=== PATIENT | male | born 1990 | race American Indian/Alaskan Native ===

== ENCOUNTER 2016-09-21 21:32 | Emergency (ER) | payer OTHER ==
[~2016-09-21] VITALS: Ht 175.3 cm; Wt 90.9 kg
[~2016-09-21 21:32] MED LIST: ATIVAN 0.50.5 MG/TAB PO; CYMBALTA 60MG60 MG PO; DESYREL 50MG50 MG PO; DOXYCYCLINE 10100 MG PO; DUO-KAPS1 CAP PO; FELDENE10 MG PO; FLEXERIL 1010 MG/TAB PO; LEXAPRO 10MG10 MG PO; MOTRIN 600600 MG/TAB PO; NEURONTIN100 MG/CAP PO; NORCO 325 MG-101 TAB PO; NORCO 325 MG-51 TAB PO; NORCO 325 MG-7.1 TAB PO; ULTRAM 50MG TAB50 MG PO; VITAMIN D1000 IU PO; XANAX .25M0.25 MG/TA PO; ZOFRAN 4MG T4 MG/TAB PO; ZOLOFT 50MG50 MG PO
[2016-09-21 21:36] VITALS: BP 142/88; TEMP 98.5
[2016-09-21] MEDS ORDERED: NAPROXEN 3375 MG/TAB PO (22:47)
[2016-09-21] MEDS ORDERED: XANAX .25M0.25 MG/TA PO (22:47)
[2016-09-21 23:02] VITALS: PULSE 67
== END 2016-09-21 23:04 | disposition home or self-care (01) ==
LOC: COL.ER 21:32
DX: F41.9 Anxiety disorder, unspecified (principal)
CPT/HCPCS: J1885

== ENCOUNTER 2017-02-06 13:29 | Emergency (ER) | payer OTHER ==
[~2017-02-06] VITALS: Ht 175.3 cm; Wt 95.5 kg
[2017-02-06 13:29] VITALS: TEMP 98.2
[~2017-02-06 13:29] MED LIST changes: +NAPROXEN 3375 MG/TAB PO
[2017-02-06 14:09] LABS: CALCIUM 9.7 mg/dL (8.4-10.2); CREATININE, serum 0.72 mg/dL (0.66-1.25); POTASSIUM 4.2 mmol/L (3.4-5.0)
[2017-02-06 14:21] LABS: HEMOGLOBIN 16.6 g/dl (13.5-18.0); MEAN CELL VOLUME 90 fl (80.0-100.0); MEAN CORPUSCULAR HEMOGLOBIN 31 pg (27.0-31.0); MEAN CORPUSCULAR HGB CONC 34 g/dl (33.0-37.0); MEAN PLATELET VOLUME 9.1 fl (7.4-10.4); PLATELET COUNT 249 K/mm3 (130-400); RED BLOOD COUNT 5.44 M/mm3 (4.20-5.60); REDCELL DISTRIBUTION WIDTH-CV 12.7 % (11.5-14.5); WHITE BLOOD COUNT 13.9 K/mm3 (4.8-10.8)
[2017-02-06 14:27] LABS: ADD PATHOLOGY DIFF REVIEW NO
[2017-02-06 15:23] VITALS: BP 128/70; PULSE 83
[2017-02-06 16:36] LABS: BAND 8 % (0-10); NEUTROPHILS 88 % (42.0-75.2); PLATELET ESTIMATE NORMAL (NORMAL); TOTAL CELLS COUNTED 100
== END 2017-02-06 15:24 | disposition home or self-care (01) ==
LOC: COL.ER 13:29
PROVIDERS: Physician Assistant
DX: R11.10 Vomiting, unspecified (principal); R19.7 Diarrhea, unspecified; G43.909 Migraine, unspecified, not intractable, without status migrainosus
CPT/HCPCS: J2550; J7030

== ENCOUNTER 2017-05-19 02:37 | Emergency (ER) | payer OTHER ==
[~2017-05-19] VITALS: Ht 175.3 cm; Wt 90.9 kg
[2017-05-19 02:41] VITALS: BP 131/76; PULSE 70; TEMP 97.8
[2017-05-19] MEDS ORDERED: MOBIC15 MG PO (02:44)
[2017-05-19] MEDS ORDERED: SILENOR3 MG PO (02:45)
[2017-05-19 03:16] LABS: BASO % 0.2 % (0.0-2.0); EOS # 0.2 (0.0-0.7); EOS % 2.5 % (0-4.0); GRAN # 3.5 (1.4-6.5); GRAN % 59.5 % (42.2-75.2); HEMATOCRIT 42.1 % (42.0-52.0); HEMOGLOBIN 14.7 g/dl (13.5-18.0); LYMPH # 1.8 (1.2-3.4); LYMPH % 29.5 % (20.0-51.0); MEAN CELL VOLUME 88 fl (80.0-100.0); MEAN CORPUSCULAR HEMOGLOBIN 31 pg (27.0-31.0); MEAN CORPUSCULAR HGB CONC 35 g/dl (33.0-37.0); MEAN PLATELET VOLUME 8.9 fl (7.4-10.4); MONO # 0.5 (0.1-0.6); MONO % 8.1 % (1.7-9.3); PLATELET COUNT 244 K/mm3 (130-400); RED BLOOD COUNT 4.79 M/mm3 (4.20-5.60); WHITE BLOOD COUNT 5.9 K/mm3 (4.8-10.8)
[2017-05-19 03:29] LABS: ADJUSTED CALCIUM 8.7 mg/dL (8.4-10.2); ALBUMIN 4.9 gm/dL (3.5-5.0); BILIRUBIN,TOTAL 0.7 mg/dL (0.0-1.0); C-REACTIVE PROTEIN 2.3 mg/dL (0.0-0.9); CALCIUM 9.4 mg/dL (8.4-10.2); CREATININE, serum 0.66 mg/dL (0.66-1.25)
[2017-05-19 03:44] LABS: COLLECTION METHOD CLEAN CATCH
[2017-05-19 03:51] LABS: MUCOUS Present /lpf; PH 5 (5-8); SQUAMOUS EPITHELIAL 0-2 /hpf; URINE APPEARANCE Clear; URINE BACTERIA None Seen /hpf; URINE BILIRUBIN Negative (NEGATIVE); URINE BLOOD Negative (NEGATIVE); URINE COLOR Yellow; URINE GLUCOSE Negative (NEGATIVE); URINE KETONE Negative (NEGATIVE); URINE LEUKOCYTE ESTERASE Negative (NEGATIVE); URINE PROTEIN(semi-quant) Negative (NEGATIVE); URINE RBC 0-2 /hpf; URINE WBC 0-2 /hpf
[2017-05-19] MEDS ORDERED: DOXYCYCLINE 10100 MG PO (05:34)
== END 2017-05-19 06:03 | disposition home or self-care (01) ==
LOC: COL.ER 02:37
PROVIDERS: Emergency Medicine
DX: N50.812 Left testicular pain (principal); G89.29 Other chronic pain; M54.9 Dorsalgia, unspecified
CPT/HCPCS: J1170; J1885; J2405; J7030

== ENCOUNTER → 2017-06-27 | Outpatient (CLI) | payer OTHER ==
[~2017-06-27] MED LIST changes: +MOBIC15 MG PO; +SILENOR3 MG PO
== END ==
LOC: MHCPAIN 07:53
DX: G89.29 Other chronic pain (principal); M47.817 Spondylosis without myelopathy or radiculopathy, lumbosacral region; M53.3 Sacrococcygeal disorders, not elsewhere classified; M96.1 Postlaminectomy syndrome, not elsewhere classified
CPT/HCPCS: G0463

== ENCOUNTER 2017-07-12 04:35 | Emergency (ER) | payer OTHER ==
[~2017-07-12] VITALS: Ht 175.3 cm; Wt 93.2 kg
[2017-07-12 04:37] VITALS: TEMP 97.7
[2017-07-12] MEDS ORDERED: ASPIRIN E.C. 8181 MG PO (04:44)
[2017-07-12] MEDS ORDERED: FLEXERIL 1010 MG/TAB PO (05:53)
[2017-07-12 06:30] VITALS: BP 123/78; PULSE 63
[2017-07-13] MEDS ORDERED: MOBIC15 MG PO (17:29)
[2017-07-13] MEDS ORDERED: FLEXERIL 1010 MG/TAB PO (18:01)
== END 2017-07-12 06:30 | disposition home or self-care (01) ==
LOC: COL.ER 04:35
DX: G89.29 Other chronic pain (principal); M54.5 Low back pain; F43.10 Post-traumatic stress disorder, unspecified; Z98.890 Other specified postprocedural states; Z79.82 Long term (current) use of aspirin; X50.0XXA Overexertion from strenuous movement or load, initial encounter
CPT/HCPCS: J1885; J2060

== ENCOUNTER 2017-07-13 15:46 | Emergency (ER) | payer OTHER ==
[~2017-07-13] VITALS: Ht 175.3 cm; Wt 90.9 kg
[~2017-07-13 15:46] MED LIST changes: +ASPIRIN E.C. 8181 MG PO
[2017-07-13 15:51] VITALS: BP 142/77; TEMP 99.3
[2017-07-13] MEDS ORDERED: MOBIC15 MG PO (17:29)
[2017-07-13] MEDS ORDERED: FLEXERIL 1010 MG/TAB PO (18:01)
[2017-07-13 18:08] VITALS: PULSE 68
== END 2017-07-13 18:08 | disposition home or self-care (01) ==
LOC: COL.ER 15:46
DX: M51.37 Other intervertebral disc degeneration, lumbosacral region (principal); Z98.890 Other specified postprocedural states; Z79.82 Long term (current) use of aspirin; X50.0XXA Overexertion from strenuous movement or load, initial encounter
CPT/HCPCS: J1885; J2060

== ENCOUNTER → 2017-07-28 | Outpatient (CLI) | payer OTHER | LOC: MHCPAIN 10:33 | DX: M47.27 Other spondylosis with radiculopathy, lumbosacral region (principal); M51.26 Other intervertebral disc displacement, lumbar region; M96.1 Postlaminectomy syndrome, not elsewhere classified | CPT/HCPCS: J1100; Q9967 ==

== ENCOUNTER 2017-07-29 02:09 | Emergency (ER) | payer OTHER ==
[~2017-07-29] VITALS: Ht 175.3 cm; Wt 90.9 kg
[2017-07-29 02:19] VITALS: BP 137/75; PULSE 86; TEMP 97.3
== END 2017-07-29 03:01 | disposition home or self-care (01) ==
LOC: COL.ER 02:09
DX: R51 Headache (principal)

== ENCOUNTER → 2017-08-09 | Outpatient (CLI) | payer OTHER | LOC: MHCPAIN 11:10 | DX: G89.29 Other chronic pain (principal); M47.817 Spondylosis without myelopathy or radiculopathy, lumbosacral region; M54.16 Radiculopathy, lumbar region; M53.3 Sacrococcygeal disorders, not elsewhere classified; M96.1 Postlaminectomy syndrome, not elsewhere classified | CPT/HCPCS: G0463 ==

== ENCOUNTER → 2017-09-01 | Outpatient (CLI) | payer OTHER | LOC: MHCPAIN 11:47 | DX: M47.27 Other spondylosis with radiculopathy, lumbosacral region (principal); M51.06 Intervertebral disc disorders with myelopathy, lumbar region; M96.1 Postlaminectomy syndrome, not elsewhere classified | CPT/HCPCS: J1040; J1100; Q9967 ==

== ENCOUNTER → 2017-10-03 | Outpatient (CLI) | payer OTHER | LOC: MHCPAIN 14:12 | DX: G89.29 Other chronic pain (principal); M47.817 Spondylosis without myelopathy or radiculopathy, lumbosacral region; M54.16 Radiculopathy, lumbar region; M53.3 Sacrococcygeal disorders, not elsewhere classified; M96.1 Postlaminectomy syndrome, not elsewhere classified | CPT/HCPCS: G0463 ==

== ENCOUNTER → 2017-11-02 | Outpatient (CLI) | payer OTHER | LOC: MHCPAIN 08:44 | DX: G89.29 Other chronic pain (principal); M47.817 Spondylosis without myelopathy or radiculopathy, lumbosacral region; M54.16 Radiculopathy, lumbar region; M53.3 Sacrococcygeal disorders, not elsewhere classified; M96.1 Postlaminectomy syndrome, not elsewhere classified | CPT/HCPCS: G0463 ==

== ENCOUNTER 2018-01-03 21:30 | Emergency (ER) | payer OTHER ==
[~2018-01-03] VITALS: Ht 175.3 cm; Wt 90.9 kg
[2018-01-03 21:33] VITALS: BP 139/84; TEMP 98
[2018-01-03 22:56] VITALS: PULSE 67
== END 2018-01-03 22:56 | disposition home or self-care (01) ==
LOC: COL.ER 21:30
DX: F41.9 Anxiety disorder, unspecified (principal); F43.10 Post-traumatic stress disorder, unspecified; G43.909 Migraine, unspecified, not intractable, without status migrainosus; Z98.890 Other specified postprocedural states; Z79.82 Long term (current) use of aspirin

== ENCOUNTER 2018-02-15 10:35 | Emergency (ER) | payer OTHER ==
[~2018-02-15] VITALS: Ht 175.3 cm; Wt 90.9 kg
[2018-02-15 10:38] VITALS: BP 134/82
[2018-02-15] MEDS ORDERED: BENADRYL25 M2 PO (10:54)
[2018-02-15 12:00] VITALS: PULSE 62; TEMP 97.8
== END 2018-02-15 12:02 | disposition home or self-care (01) ==
LOC: COL.ER 10:35
DX: L50.9 Urticaria, unspecified (principal); F43.10 Post-traumatic stress disorder, unspecified; F41.9 Anxiety disorder, unspecified; Z98.890 Other specified postprocedural states; Z79.82 Long term (current) use of aspirin

== ENCOUNTER 2018-03-24 00:10 | Emergency (ER) | payer OTHER ==
[~2018-03-24] VITALS: Ht 175.3 cm; Wt 93.2 kg
[~2018-03-24 00:10] MED LIST changes: +BENADRYL25 M2 PO
[2018-03-24 00:13] VITALS: BP 140/75; TEMP 98
[2018-03-24] MEDS ORDERED: VITAMIN D31000 IU PO (00:25)
[2018-03-24] MEDS ORDERED: ZOCOR5 MG PO (00:27)
[2018-03-24 01:15] LABS: BASO % 0.4 % (0.0-2.0); EOS % 0.4 % (0-4.0); GRAN # 6.2 (1.4-6.5); GRAN % 85.7 % (42.2-75.2); HEMATOCRIT 43.1 % (42.0-52.0); HEMOGLOBIN 14.9 g/dl (13.5-18.0); LYMPH # 0.6 (1.2-3.4); LYMPH % 8.1 % (20.0-51.0); MEAN CELL VOLUME 88 fl (80.0-100.0); MEAN CORPUSCULAR HEMOGLOBIN 30 pg (27.0-31.0); MEAN CORPUSCULAR HGB CONC 35 g/dl (33.0-37.0); MONO # 0.4 (0.1-0.6); MONO % 5.1 % (1.7-9.3); PLATELET COUNT 262 K/mm3 (130-400); REDCELL DISTRIBUTION WIDTH-CV 12.5 % (11.5-14.5)
[2018-03-24 01:34] LABS: ALBUMIN 4.6 gm/dL (3.5-5.0); BILIRUBIN,TOTAL 1.1 mg/dL (0.0-1.0); CREATININE, serum 0.66 mg/dL (0.66-1.25)
[2018-03-24] MEDS ORDERED: ZOFRAN ODT4 MG PO (02:23)
[2018-03-24 02:52] VITALS: PULSE 72
== END 2018-03-24 02:52 | disposition home or self-care (01) ==
LOC: COL.ER 00:10
PROVIDERS: Nurse Practitioner
DX: R19.7 Diarrhea, unspecified (principal); R11.2 Nausea with vomiting, unspecified; F43.10 Post-traumatic stress disorder, unspecified; G43.909 Migraine, unspecified, not intractable, without status migrainosus; F41.9 Anxiety disorder, unspecified
CPT/HCPCS: J2405; J2550; J7030

== ENCOUNTER → 2018-07-19 | Outpatient (CLI) | payer SELFPAY ==
[~2018-07-19] MED LIST changes: +VITAMIN D31000 IU PO; +ZOCOR5 MG PO; +ZOFRAN ODT4 MG PO
== END ==
LOC: COL.RAD 12:18
DX: M51.27 Other intervertebral disc displacement, lumbosacral region (principal); M48.07 Spinal stenosis, lumbosacral region; M96.1 Postlaminectomy syndrome, not elsewhere classified

== ENCOUNTER 2018-07-21 18:09 | Emergency (ER) | payer SELFPAY ==
[~2018-07-21] VITALS: Ht 175.3 cm; Wt 97.3 kg
[2018-07-21 18:15] VITALS: BP 141/77; TEMP 98.6
[2018-07-21] MEDS ORDERED: NORCO 325 MG-51 TAB PO (19:57)
[2018-07-21 20:25] VITALS: PULSE 90
== END 2018-07-21 20:25 | disposition home or self-care (01) ==
LOC: COL.ER 18:09
DX: M54.5 Low back pain (principal); W00.0XXA Fall on same level due to ice and snow, initial encounter
CPT/HCPCS: J1885

== ENCOUNTER 2018-07-23 17:16 | Emergency (ER) | payer SELFPAY ==
[~2018-07-23] VITALS: Ht 175.3 cm; Wt 97.3 kg
[2018-07-23 17:40] VITALS: TEMP 99.3
[2018-07-23 18:35] LABS: BASO % 0.3 % (0.0-2.0); EOS # 0.2 (0.0-0.7); EOS % 2.9 % (0-4.0); GRAN % 51.2 % (42.2-75.2); HEMATOCRIT 42.7 % (42.0-52.0); HEMOGLOBIN 14.8 g/dl (13.5-18.0); LYMPH # 2.3 (1.2-3.4); LYMPH % 39.3 % (20.0-51.0); MEAN CELL VOLUME 88 fl (80.0-100.0); MEAN CORPUSCULAR HEMOGLOBIN 31 pg (27.0-31.0); MEAN CORPUSCULAR HGB CONC 35 g/dl (33.0-37.0); MONO # 0.4 (0.1-0.6); MONO % 6.1 % (1.7-9.3); PLATELET COUNT 244 K/mm3 (130-400); RED BLOOD COUNT 4.85 M/mm3 (4.20-5.60); REDCELL DISTRIBUTION WIDTH-CV 12.5 % (11.5-14.5)
[2018-07-23 18:41] LABS: COLLECTION METHOD CLEAN CATCH
[2018-07-23 18:46] LABS: PH 6 (5-8); SQUAMOUS EPITHELIAL None Seen /hpf; URINE APPEARANCE Clear; URINE BACTERIA None Seen /hpf; URINE BILIRUBIN Negative (NEGATIVE); URINE BLOOD Negative (NEGATIVE); URINE COLOR Straw; URINE GLUCOSE Negative (NEGATIVE); URINE KETONE Negative (NEGATIVE); URINE LEUKOCYTE ESTERASE Negative (NEGATIVE); URINE NITRATE Negative (NEGATIVE); URINE PROTEIN(semi-quant) Negative (NEGATIVE); URINE RBC 0-2 /hpf; URINE UROBILINOGEN Negative (NEGATIVE)
[2018-07-23 18:49] LABS: ALANINE AMINOTRANSFERASE 44 U/L (21-72); ALBUMIN 4.5 gm/dL (3.5-5.0); ALKALINE PHOSPHATASE 61 U/L (50-136); ANION GAP 11 mmol/L (7-16); AST,SGOT 29 U/L (15-37); BILIRUBIN,TOTAL 0.4 mg/dL (0.0-1.0); BLOOD UREA NITROGEN 9 mg/dL (9-20); CALCIUM 9.3 mg/dL (8.4-10.2); CARBON DIOXIDE 25 mmol/L (22-30); CHLORIDE 103 mmol/L (98-107); CREATININE, serum 0.73 mg/dL (0.66-1.25); GLUCOSE 95 mg/dL (74-106); POTASSIUM 3.6 mmol/L (3.4-5.0); SODIUM 139 mmol/L (137-145); TOTAL PROTEIN 7.8 gm/dL (6.4-8.2)
[2018-07-23 18:57] LABS: C-REACTIVE PROTEIN < 0.5 mg/dL (0.0-0.9)
[2018-07-23 19:10] LABS: ERYTHROCYTE SEDIMENTATION RATE 2 mm/hr (0-15)
[2018-07-23 21:27] VITALS: BP 126/81
[2018-07-23 22:20] VITALS: PULSE 95
== END 2018-07-23 22:22 | disposition short-term general hospital (02) ==
LOC: COL.ER 17:16
PROVIDERS: Physician Assistant
DX: M54.5 Low back pain (principal); R15.9 Full incontinence of feces

== ENCOUNTER 2018-08-02 13:00 | Outpatient (RCR) | payer OTHER ==
[2018-08-31] MEDS ORDERED: ULTRAM 50MG TAB50 MG PO (21:23)
== END 2018-10-24 15:11 ==
LOC: WSOH 13:00
DX: M51.16 Intervertebral disc disorders with radiculopathy, lumbar region (principal); M62.830 Muscle spasm of back; Y93.01 Activity, walking, marching and hiking; W01.0XXD Fall on same level from slipping, tripping and stumbling without subsequent striking against object, subsequent encounter; Y99.0 Civilian activity done for income or pay; Y92.214 College as the place of occurrence of the external cause; Z88.0 Allergy status to penicillin

== ENCOUNTER 2018-08-31 19:50 | Emergency (ER) | payer OTHER ==
[~2018-08-31] VITALS: Ht 175.3 cm; Wt 100.0 kg
[2018-08-31 19:58] VITALS: TEMP 98.4
[2018-08-31] MEDS ORDERED: ULTRAM 50MG TAB50 MG PO (21:23)
[2018-08-31 21:43] VITALS: BP 124/80; PULSE 76
== END 2018-08-31 21:44 | disposition home or self-care (01) ==
LOC: COL.ER 19:50
DX: F41.0 Panic disorder [episodic paroxysmal anxiety] (principal); G89.29 Other chronic pain; M54.5 Low back pain; F43.10 Post-traumatic stress disorder, unspecified; F41.9 Anxiety disorder, unspecified
CPT/HCPCS: J1885

== ENCOUNTER → 2018-10-11 | Outpatient (CLI) | payer OTHER | LOC: MHCPAIN 08:12 | DX: G89.29 Other chronic pain (principal); M47.817 Spondylosis without myelopathy or radiculopathy, lumbosacral region; M54.16 Radiculopathy, lumbar region; M53.3 Sacrococcygeal disorders, not elsewhere classified; M96.1 Postlaminectomy syndrome, not elsewhere classified | CPT/HCPCS: G0463 ==

== ENCOUNTER → 2018-11-21 | Outpatient (CLI) | payer OTHER | LOC: MHCPAIN 12:57 | DX: G89.29 Other chronic pain (principal); M47.817 Spondylosis without myelopathy or radiculopathy, lumbosacral region; M54.16 Radiculopathy, lumbar region; M53.3 Sacrococcygeal disorders, not elsewhere classified; M96.1 Postlaminectomy syndrome, not elsewhere classified | CPT/HCPCS: G0463 ==

== ENCOUNTER → 2018-12-14 | Outpatient (CLI) | payer OTHER | LOC: MHCPAIN 12:37 | DX: M47.817 Spondylosis without myelopathy or radiculopathy, lumbosacral region (principal); M96.1 Postlaminectomy syndrome, not elsewhere classified | CPT/HCPCS: J0690 ==

== ENCOUNTER → 2018-12-21 | Outpatient (CLI) | payer OTHER | LOC: MHCPAIN 11:28 | DX: G89.29 Other chronic pain (principal); M47.817 Spondylosis without myelopathy or radiculopathy, lumbosacral region; M54.16 Radiculopathy, lumbar region; M53.3 Sacrococcygeal disorders, not elsewhere classified; M96.1 Postlaminectomy syndrome, not elsewhere classified | CPT/HCPCS: G0463 ==

== ENCOUNTER 2019-02-20 22:51 | Emergency (ER) | payer OTHER ==
[~2019-02-20] VITALS: Ht 175.3 cm; Wt 90.9 kg
[2019-02-20 23:03] VITALS: BP 130/79; TEMP 98
[2019-02-21] MEDS ORDERED: ATARAX 25MG25 MG/TAB PO (00:11)
[2019-02-21 00:40] VITALS: PULSE 69
== END 2019-02-21 00:44 | disposition home or self-care (01) ==
LOC: COL.ER 22:51
DX: F41.9 Anxiety disorder, unspecified (principal); R52 Pain, unspecified

== ENCOUNTER 2019-04-20 14:05 | Emergency (ER) | payer OTHER ==
[~2019-04-20] VITALS: Ht 175.3 cm; Wt 90.9 kg
[~2019-04-20 14:05] MED LIST changes: +ATARAX 25MG25 MG/TAB PO
[2019-04-20 14:16] VITALS: TEMP 97.9
[2019-04-20] MEDS ORDERED: CRESTOR 10MG10 MG PO (15:12)
[2019-04-20] MEDS ORDERED: TOPAMAX50 MG PO (15:12)
[2019-04-20] MEDS ORDERED: ZANTAC 150MG T150 MG PO (15:13)
[2019-04-20] MEDS ORDERED: XANAX .25M0.25 MG/TA PO (15:13)
[2019-04-20] MEDS ORDERED: VITAMIN D31000 I1 PO (15:14)
[2019-04-20] MEDS ORDERED: IMITREX50 MG PO (15:14)
[2019-04-20] MEDS ORDERED: FLEXERIL 1010 MG/TAB PO (16:25)
[2019-04-20] MEDS ORDERED: NORCO 325 MG-51 TAB PO (16:25)
[2019-04-20 17:44] VITALS: BP 118/82; PULSE 59
== END 2019-04-20 17:44 | disposition home or self-care (01) ==
LOC: COL.ER 14:05
DX: M54.16 Radiculopathy, lumbar region (principal); M54.5 Low back pain; G89.29 Other chronic pain; Z88.6 Allergy status to analgesic agent
CPT/HCPCS: J1885

== ENCOUNTER 2019-05-20 15:11 | Emergency (ER) | payer OTHER ==
[~2019-05-20] VITALS: Ht 175.3 cm; Wt 95.5 kg
[~2019-05-20 15:11] MED LIST changes: +CRESTOR 10MG10 MG PO; +IMITREX50 MG PO; +TOPAMAX50 MG PO; +VITAMIN D31000 I1 PO; +ZANTAC 150MG T150 MG PO
[2019-05-20 15:17] VITALS: BP 140/86; TEMP 97.9
[2019-05-20] MEDS ORDERED: NORCO 325 MG-7.1 TAB PO (16:55)
[2019-05-20] MEDS ORDERED: FLEXERIL 1010 MG/TAB PO (16:55)
[2019-05-20 17:30] VITALS: PULSE 83
[2019-05-20 17:58] LABS: HIV 1/2 Antibodies Non-Reactive; HIV-1p24 Antigen Non-Reactive
[2019-05-21 20:10] LABS: HEPATITIS B SURFACE ANTIGEN Negative (Negative); HEPATITIS C VIRUS ANTIBODY Negative (Negative)
== END 2019-05-20 17:30 | disposition home or self-care (01) ==
LOC: COL.ER 15:11
PROVIDERS: Physician Assistant
DX: M54.5 Low back pain (principal); E78.5 Hyperlipidemia, unspecified; F41.9 Anxiety disorder, unspecified; G43.909 Migraine, unspecified, not intractable, without status migrainosus; F43.10 Post-traumatic stress disorder, unspecified; Z98.890 Other specified postprocedural states
CPT/HCPCS: J1885; J3360

== ENCOUNTER 2019-05-29 22:50 | Emergency (ER) | payer OTHER ==
[~2019-05-29] VITALS: Ht 175.3 cm; Wt 90.9 kg
[2019-05-29 22:53] VITALS: BP 134/88; TEMP 97.4
[2019-05-29] MEDS ORDERED: CEPHALEXIN500 M1 PO (23:13)
[2019-05-30 00:02] VITALS: PULSE 83
== END 2019-05-30 00:02 | disposition home or self-care (01) ==
LOC: COL.ER 22:50
DX: T81.40XA Infection following a procedure, unspecified, initial encounter (principal); F41.9 Anxiety disorder, unspecified; G43.909 Migraine, unspecified, not intractable, without status migrainosus

== ENCOUNTER 2019-06-03 17:41 | Emergency (ER) | payer OTHER ==
[~2019-06-03] VITALS: Ht 175.3 cm; Wt 90.9 kg
[~2019-06-03 17:41] MED LIST changes: +CEPHALEXIN500 M1 PO
[2019-06-03 18:12] VITALS: TEMP 98.5
[2019-06-03 20:02] LABS: BASO % 0.2 % (0.0-2.0); EOS # 0.1 (0.0-0.7); GRAN % 71.9 % (42.2-75.2); HEMATOCRIT 41.7 % (42.0-52.0); HEMOGLOBIN 14.4 g/dl (13.5-18.0); LYMPH # 1.8 (1.2-3.4); LYMPH % 21.5 % (20.0-51.0); MEAN CELL VOLUME 88 fl (80.0-100.0); MEAN CORPUSCULAR HEMOGLOBIN 30 pg (27.0-31.0); MEAN CORPUSCULAR HGB CONC 35 g/dl (33.0-37.0); MEAN PLATELET VOLUME 8.6 fl (7.4-10.4); MONO # 0.4 (0.1-0.6); MONO % 5.2 % (1.7-9.3); PLATELET COUNT 305 K/mm3 (130-400); RED BLOOD COUNT 4.76 M/mm3 (4.20-5.60); REDCELL DISTRIBUTION WIDTH-CV 12.1 % (11.5-14.5)
[2019-06-03 20:10] LABS: CALCIUM 9.5 mg/dL (8.4-10.2); CREATININE, serum 0.7 (0.66-1.25)
[2019-06-03] MEDS ORDERED: NORCO 325 MG-51 TAB PO (20:37)
[2019-06-03 20:45] VITALS: BP 130/86; PULSE 60
== END 2019-06-03 20:45 | disposition home or self-care (01) ==
LOC: COL.ER 17:41
PROVIDERS: Physician Assistant
DX: M54.5 Low back pain (principal); R20.2 Paresthesia of skin; Z98.890 Other specified postprocedural states

== ENCOUNTER 2019-11-13 19:39 | Emergency (ER) | payer BC, OTHER ==
[~2019-11-13] VITALS: Ht 175.3 cm; Wt 90.9 kg
[2019-11-13] MEDS ORDERED: NEURONTIN300 MG/CAP PO (22:30)
[2019-11-13] MEDS ORDERED: ZOFRAN 4MG T4 MG/TAB PO (22:30)
[2019-11-13 22:34] VITALS: BP 126/70; PULSE 64; TEMP 99.2
== END 2019-11-13 22:49 | disposition home or self-care (01) ==
LOC: COL.ER 19:39
DX: G43.909 Migraine, unspecified, not intractable, without status migrainosus (principal); M54.16 Radiculopathy, lumbar region
CPT/HCPCS: J0780; J1200; J1885; J7030

== ENCOUNTER → 2020-07-02 | Outpatient (CLI) | payer BC ==
[~2020-07-02] MED LIST changes: +NEURONTIN300 MG/CAP PO
== END ==
LOC: MHCPAIN 10:14
DX: M54.17 Radiculopathy, lumbosacral region (principal); M54.5 Low back pain; M96.1 Postlaminectomy syndrome, not elsewhere classified
CPT/HCPCS: G0463

== ENCOUNTER 2020-10-29 12:45 | Outpatient (RCR) | payer OTHER | END 2020-10-29 17:45 | disposition home or self-care (01) | LOC: MKS.ESL.PT 12:45 | DX: M54.5 Low back pain (principal) ==

== ENCOUNTER 2021-04-21 19:37 | Emergency (ER) | payer OTHER ==
[~2021-04-21] VITALS: Ht 175.3 cm; Wt 97.3 kg
[2021-04-21 19:50] VITALS: TEMP 98.4
[2021-04-21 21:33] VITALS: BP 139/80; PULSE 73
== END 2021-04-21 21:34 | disposition home or self-care (01) ==
LOC: COL.ER 19:37
DX: G43.909 Migraine, unspecified, not intractable, without status migrainosus (principal); Z88.5 Allergy status to narcotic agent; Z87.820 Personal history of traumatic brain injury; Z79.899 Other long term (current) drug therapy
CPT/HCPCS: J1200; J1885; J2765; J7030

== ENCOUNTER 2021-05-20 13:29 | Emergency (ER) | payer OTHER, BC ==
[~2021-05-20] VITALS: Ht 175.3 cm; Wt 95.5 kg
[2021-05-20 14:12] LABS: BASO % 0.6 % (0.0-2.0); EOS # 0.1 K/mm3 (0.0-0.7); EOS % 2.5 % (0.0-4.0); GRAN # 2.8 K/mm3 (1.4-6.5); GRAN % 53.3 % (42.2-75.2); HEMATOCRIT 45.1 % (42.0-52.0); HEMOGLOBIN 15.3 g/dl (13.5-18.0); LYMPH % 37.4 % (20.0-51.0); MEAN CELL VOLUME 89 fl (80.0-100.0); MEAN CORPUSCULAR HEMOGLOBIN 30 pg (27-31); MEAN CORPUSCULAR HGB CONC 34 g/dl (33.0-37.0); MEAN PLATELET VOLUME 8.9 fl (7.4-10.4); MONO # 0.3 K/mm3 (0.1-0.6); PLATELET COUNT 283 K/mm3 (130-400); RED BLOOD COUNT 5.08 M/mm3 (4.20-5.60); REDCELL DISTRIBUTION WIDTH-CV 12.4 % (11.5-14.5)
[2021-05-20 14:29] LABS: ALANINE AMINOTRANSFERASE 40 U/L (0-55); ALBUMIN 4.5 gm/dL (3.5-5.0); ALKALINE PHOSPHATASE 46 U/L (40-150); ANION GAP 10 mmol/L (7-16); AST,SGOT 22 U/L (5-34); BILIRUBIN,TOTAL 0.8 mg/dL (0.2-1.2); BLOOD UREA NITROGEN 7 mg/dL (9-21); CALCIUM 9.1 mg/dL (8.4-10.2); CARBON DIOXIDE 24 mmol/L (22-29); CHLORIDE 106 mmol/L (98-107); CREATININE, serum 0.79 mg/dL (0.72-1.25); GLUCOSE 91 mg/dL (70-99); SODIUM 140 mmol/L (136-145); TOTAL PROTEIN 7.7 gm/dL (6.2-8.1)
[2021-05-20 14:52] LABS: TSH w REFLEX 2.273 uIU/mL (0.350-4.940)
[2021-05-20 14:59] LABS: TROPONIN-I < 0.010 ng/mL (0.00-0.033)
[2021-05-20 15:00] VITALS: BP 128/84; PULSE 66; TEMP 98.5
== END 2021-05-20 15:05 | disposition home or self-care (01) ==
LOC: COL.ER 13:29
PROVIDERS: Emergency Medicine
DX: R42 Dizziness and giddiness (principal); G89.29 Other chronic pain; M54.50 Low back pain, unspecified; Z88.5 Allergy status to narcotic agent; Z79.899 Other long term (current) drug therapy